=== PATIENT | male | born 1985 | race Caucasian/White ===

== ENCOUNTER 2023-06-07 14:28 | Emergency (ER) | payer SELFPAY ==
[~2023-06-07] VITALS: Ht 170.2 cm; Wt 64.0 kg
[2023-06-07 14:33] VITALS: BP 127/79; PULSE 80; RESP 16; TEMP 98.1; O2SAT 100
[2023-06-07] MEDS ORDERED: SODIUM CHLORIDE 0.9% 1,000 ML IV ONE (14:45)
[2023-06-07] MEDS ORDERED: DIPHENHYDRAMINE 50MG/ML VIAL IV ONE (14:45)
[2023-06-07] MEDS ORDERED: KETOROLAC 30MG/ML VIAL IV STA (14:45)
[2023-06-07] MEDS ORDERED: METOCLOPRAMIDE HCL 10MG/2ML VIAL IV ONE (14:45)
== END 2023-06-07 19:35 | disposition home or self-care (01) ==
LOC: ER 14:28
DX: R51.9 Headache, unspecified (principal); F20.9 Schizophrenia, unspecified
CPT/HCPCS: 99283; J7030